=== PATIENT | male | born 1975 | race Caucasian/White ===

== ENCOUNTER 2018-06-13 13:07 | Emergency (ER) | payer OTHER ==
--- NOTE | 2018-06-13 14:08 | ED ---
GI/ HPI - HPI Summary HPI Summary: This is scribaurelio Lyon documenting for attending Osbaldo Marks MD. Patient is a 43 y/o M w/ c/o hernia in left groin. Hernia onset was a month ago and has been progressively growing since onset. Hernia causes pain, which is rated 3/10 on triage. He notes area is swollen and red and his PCP was concerned about infection. He denies change in appetite and reports normal bowel movements in the room. However, on triage, it is noted he has difficulty voiding and ambulating aggravates Sx. Nothing is noted to alleviate pain. Home medications and allergies are reviewed. - History of Current Complaint Chief Complaint: EDAbdPain Time Seen by Provider: 06/13/18 13:59 Stated Complaint: POS INFECTION Hx Obtained From: Patient Onset/Duration: Started Weeks Ago - a month ago Timing: Constant Current Severity: Mild - 3/10 Pain Intensity: 3 Location of Pain: Groin - left Aggravating Factor(s): Bowel Movement - voiding is reported to be difficult, Walking/Exertion Alleviating Factor(s): Nothing - Allergy/Home Medications Allergies/Adverse Reactions: Allergies Allergy/AdvReac Type Severity Reaction Status Date / Time No Known Allergies Allergy Verified 06/13/18 14:10 PMH/Surg Hx/FS Hx/Imm Hx Endocrine/Hematology History: Denies: Hx Anticoagulant Therapy, Hx Diabetes, Hx Thyroid Disease Cardiovascular History: Reports: Hx Hypertension Denies: Hx Pacemaker/ICD Respiratory History: Denies: Hx Asthma, Hx Chronic Obstructive Pulmonary Disease (COPD) History: Denies: Hx Renal Disease Sensory History: Denies: Hx Hearing Aid Neurological History: Denies: Hx Dementia, Hx Seizures Psychiatric History: Reports: Hx Panic Disorder - a little Denies: Hx Substance Abuse - Surgical History Surgery Procedure, Year, and Place: RIGHT HAND SURGERY,broken bones,ear tubes Infectious Disease History: No Infectious Disease History: Denies: Hx Hepatitis, Hx Human Immunodeficiency Virus (HIV), Traveled Outside the [place] in Last 30 Days - Family History Known Family History: Negative: Blood Disorder - Social History Alcohol Use: None Substance Use Type: Reports: None Smoking Status (MU): Never Smoked Tobacco Type: Cigarettes, eCigarettes Amount Used/How Often: 3 CIGARETTES Length of Time of Smoking/Using Tobacco: 15 YEARS Have You Smoked in the Last Year: Yes Review of Systems Positive: Other - no changes in appetitie, normal bowel movements are reported; difficulty voiding Positive: pain - hernia at left groin; red, swollen left groin; pain at left groin All Other Systems Reviewed And Are Negative: Yes Physical Exam - Summary Physical Exam Summary: Appearance: The patient is well-nourished in no acute distress and in no acute pain. Skin: The skin is warm and dry and skin color reflects adequate perfusion. HEENT: The head is normocephalic and atraumatic. The pupils are equal and reactive. The conjunctivae are clear and without drainage. Nares are patent and without drainage. Mouth reveals moist mucous membranes and the throat is without erythema and exudate. The external ears are intact. The ear canals are patent and without drainage. The tympanic membranes are intact. Neck: The neck is supple with full range of motion and non-tender. There are no carotid bruits. There is no neck vein distension. Respiratory: Chest is non-tender. Lungs are clear to auscultation and breath sounds are symmetrical and equal. Cardiovascular: Heart is regular rate and rhythm. There is no murmur or rub auscultated. There is no peripheral edema and pulses are symmetrical and equal. Abdomen: The abdomen is soft and non-tender. There are normal bowel sounds heard in all four quadrants and there is no organomegaly palpated. Genitourinary: Left inguinal hernia with a large mass in scrotum is observed. Left scrotum is erythematous. All else normal. Musculoskeletal: There is no back tenderness noted. Extremities are non-tender with full range of motion. There is good capillary refill. There is no peripheral edema or calf tenderness elicited. Neurological: Patient is alert and oriented to person, place and time. The patient has symmetrical motor strength in all four extremities. Cranial nerves are grossly intact. Deep tendon reflexes are symmetrical and equal in all four extremities. Psychiatric: The patient has an appropriate affect and does not exhibit any anxiety or depression. Triage Information Reviewed: Yes Vital Signs On Initial Exam: Initial Vitals Temp Pulse Resp BP Pulse Ox 98.8 F 91 20 132/73 95 06/13/18 13:30 06/13/18 13:30 06/13/18 13:30 06/13/18 13:30 06/13/18 13:30 Vital Signs Reviewed: Yes Diagnostics - Vital Signs Vital Signs Temp Pulse Resp BP Pulse Ox 06/13/18 13:30 98.8 F 91 20 132/73 95 - Laboratory Result Diagrams: 06/13/18 14:18 06/13/18 14:18 Lab Statement: Any lab studies that have been ordered have been reviewed, and results considered in the medical decision making process. Re-Evaluation - Re-Evaluation First Eval Re-Evaluation Time: 15:12 Comment: Discussed results of labs and tests as well as consult with Dr. Castro. Patient is agreeable with plan to be discharged to home and follow up with Dr. Castro's office on Saturday, in three days. GIGU Course/Dx - Course Course Of Treatment: Mr. Coreas presents to the emergency department complaining of a mass in his left groin that has been getting gradually larger for 1 month. Over the last week or so it has gotten massive and gotten red and irritated. Every once in a while he has a pain in the left groin but most of the time it is just a discomfort especially if he is on his feet for a long period of time. He was afebrile with normal vital signs and his scrotum was enlarged massively the left greater than the right. The skin was mildly erythematous but not tender. His abdomen was soft and nontender and he is still moving his bowels and eating normally. He had no leukocytosis. Is unclear exactly what the etiology of this is. It is likely a hernia although it could be a hydrocele etc. I spoke with Dr. Castro who agreed to follow him up first of the week. There is no sign of an acute infectious process at this time. I recommended that he return to the emergency department immediately if he had any pain, fever or inability to urinate or eat. - Diagnoses Provider Diagnoses: Left inguinal hernia - Physician Notifications Discussed Care Of Patient With: Daisha Castro Time Discussed With Above Provider: 15:07 Instructed by Provider To: Other - Dr. Castro was consulted on patient's case at 15:12. She recommends discharge from hospital and follow up at her office on Saturday, in three days. Discharge - Sign-Out/Discharge Documenting (check all that apply): Patient Departure - discharge - Discharge Plan Condition: Stable Disposition: HOME Patient Education Materials: Inguinal Hernia (ED) Forms: *Work Release Referrals: Daisha Castro MD [Medical Doctor] - Additional Instructions: Follow up with Dr. Daisha Castro on 06/16/17. Return to ED for any new or worsening symptoms. - Billing Disposition and Condition Condition: STABLE Disposition: Home
[2018-06-13 14:28] LABS: ABS Basophils 0.1 10^3/ul (0-0.2); ABS Eosinophils 0.2 10^3/ul (0-0.6); ABS Monocytes 1.3 10^3/ul (0-0.8); ABS Neutrophils 6.2 10^3/ul (1.5-7.7); ABS Nucleated RBC 0 10^3/ul; Eosinophil % 1.9 % (0-6); Hematocrit 44 % (42-52); Hemoglobin 15.3 g/dl (14.0-18.0); Lymphocyte % 28.1 % (25-47); Mean Corpuscular HGB Conc 35 g/dl (31-36); Mean Corpuscular Hemoglobin 32 pg (27-31); Mean Corpuscular Volume 91 fL (80-94); Mean Platelet Volume 7.8 um3 (7.4-10.4); Nucleated Red Blood Cells % 0; Platelet Count 251 10^3/ul (150-450); Red Blood Count 4.83 10^6/ul (4.00-5.40); Red Cell Distribution Width 14 % (10.5-15); White Blood Count 10.8 10^3/ul (3.5-10.8)
[2018-06-13 14:46] LABS: EGFR Non-African American 103.5 (>60)
[2018-06-13 15:24] VITALS: BP 122/75
== END 2018-06-13 15:29 | disposition home or self-care (01) ==
LOC: ED 13:07
DX: K40.90 Unilateral inguinal hernia, without obstruction or gangrene, not specified as recurrent (principal); F17.210 Nicotine dependence, cigarettes, uncomplicated; F17.290 Nicotine dependence, other tobacco product, uncomplicated
CPT/HCPCS: 36415; 80053; 83605; 85025; 86140; 99282